=== PATIENT | female | born 1995 | race Two or more races ===

== ENCOUNTER → 2018-10-18 | Outpatient (CLI) | payer MEDICAID | LOC: FIMAGING 13:11 | PROVIDERS: ATTEND Physician Assistant | DX: O36.5930 Maternal care for other known or suspected poor fetal growth, third trimester, not applicable or unspecified (principal); O41.03X0 Oligohydramnios, third trimester, not applicable or unspecified; Z3A.33 33 weeks gestation of pregnancy ==

== ENCOUNTER 2018-12-04 21:25 | Emergency (ER) | payer MEDICAID ==
[2018-12-04] MEDS ORDERED: IBUPROFEN 600 MG TAB PO ONE (22:07)
--- NOTE | 2018-12-04 22:10 | EDPHY ---
H & P Stated Complaint: headache, fever Time Seen by Provider: 12/04/18 21:58 HPI/ROS: Chief Complaint: Fever, headache HPI: 22-year-old healthy woman is complaining of headache and fever. Patient states she started developing this gradual onset headache this morning. At noon she notes she had a fever. She did take Tylenol about 1:00 p.m.. This did help but symptoms recur turned about 7:30. She again took Tylenol. She has no stiff neck. Does have a mild cough. Some congestion. Headaches on the left side of her head. At worst an 8/10. No skin rash. No recent ill contacts. It is not the worst headache of her life. ROS: 10 systems were reviewed and were negative except those elements noted in the HPI. PMH: in September, she is breast-feeding Social History: No smoking, no alcohol, no recreational drug use Family History: non-contributory Physical Exam: Gen: Awake, Alert, No Distress HEENT: Nose: no rhinorrhea Eyes: PERRLA, EOMI Mouth: Moist mucosa Neck: Supple, no JVD absolutely no meningismus Chest: nontender, lungs clear to auscultation Heart: S1, S2 normal, no murmur Abd: Soft, non-tender, no guarding Back: no CVA tenderness, no midline tenderness Ext: no edema, non-tender Skin: no rash Neuro: CN II-XII intact, Sensation grossly intact, Strength 5/5 in bilateral upper and lower extremities - Personal History Current Tetanus Diphtheria and Acellular Pertussis (TDAP): Yes - Medical/Surgical History Hx Asthma: No Hx Chronic Respiratory Disease: No Hx Diabetes: No Hx Cardiac Disease: No Hx Renal Disease: No Hx Cirrhosis: No Hx Alcoholism: No Hx HIV/AIDS: No Hx Splenectomy or Spleen Trauma: No Other PMH: c- section 10/20/18 - Social History Smoking Status: Never smoked Constitutional: Initial Vital Signs Temperature (C) 38.1 C 12/04/18 21:29 Heart Rate 116 H 12/04/18 21:29 Respiratory Rate 20 12/04/18 21:29 Blood Pressure 111/80 12/04/18 21:29 O2 Sat (%) 94 12/04/18 21:29 O2 Delivery Mode Room Air Allergies/Adverse Reactions: No Known Allergies Allergy (Unverified 12/04/18 21:29) Home Medications: Medication Instructions Recorded NK [No Known Home Meds] 12/04/18 Medical Decision Making ED Course/Re-evaluation: Patient is feeling much better after ibuprofen. She has symptoms consistent with viral upper respiratory infection. She has absolutely no meningismus. Is not the worst headache of her life. She has no rash. Completely normal exam and otherwise well-appearing. Will discharge with follow-up with primary care physician. Alternate acetaminophen with ibuprofen, return for any concerns. - Data Points Medications Given: Discontinued Medications Ibuprofen (Motrin) 600 mg PO EDNOW ONE Stop: 12/04/18 22:08 Last Admin: 12/04/18 22:12 Dose: 600 mg Departure - Departure Disposition: Home, Routine, Self-Care Clinical Impression: Viral syndrome Condition: Good Instructions: Viral Syndrome (ED) Additional Instructions: Alternate acetaminophen (1000 mg) with ibuprofen (400 mg) every 4 hours as needed for fevers, chills, aches or pain. Follow up with primary care physician in 2-3 days for further evaluation. Return to the emergency department for worsening headache, rash, confusion, uncontrolled nausea vomiting, or any other concerns. Referrals: Romelia Jane PA [Primary Care Provider] - As per Instructions
[2018-12-04 22:55] VITALS: BP 118/60
== END 2018-12-04 23:22 | disposition home or self-care (01) ==
DX: B34.9 Viral infection, unspecified (principal)